=== PATIENT | male | born 1945 | race Two or more races ===

== ENCOUNTER 2017-12-23 08:44 | Inpatient (IN) | payer BC, MEDICAID ==
[~2017-12-23] VITALS: Ht 157.5 cm; Wt 86.2 kg
--- NOTE | 2017-12-23 08:50 | NUR ---
BBRA 83 FROM HOME C/O APHASIC AND UNRESPONSIVE~ 1 MIN PER AFTER BREAKFAST THIS AM ABOUT 45 MIN TEACHER LEARNING DISABLED. PATIENT HAS HX OF STROKE WITH LEFT SIDED PARALYSIS. UPON ARRIVAL PATIENT IS FULLY ALERT/ORIENTED X 3. NO OTHER NEURO DEFICITS NOTED, OTHER THAN LEFT SIDED PARALYSIS. BREATHING EVEN AND UNLABORED. NO SOB. VITALS STABLE. IV INTACT ON RAC, 18 G. SAFETY AND COMFORT MEASURES IN PLACE. AWAITING MD ORDERS.
--- NOTE | 2017-12-23 09:15 | NUR ---
VICE PRESIDENT NETWORK AT BEDSIDE FOR BLOOD DRAW.
--- NOTE | 2017-12-23 09:20 | NUR ---
PATIENT TAKEN TO CT VIA STRETCHER.
[2017-12-23 09:31] LABS: BASOPHILS # (AUTO) 0.2 /CMM (0.0-0.2); BASOPHILS % (AUTO) 0.8 % (0.0-2.0); EOSINOPHILS # (AUTO) 0.1 /CMM (0.0-0.7); EOSINOPHILS % (AUTO) 0.7 % (0.0-6.0); HEMATOCRIT 40 % (39-51); HEMOGLOBIN 13.6 g/dL (13.5-17.5); LYMPHOCYTES # (AUTO) 4.2 /CMM (0.8-4.8); LYMPHOCYTES % (AUTO) 21.7 % (20.0-44.0); MEAN CORPUSCULAR HEMOGLOBIN 28 PG (26.0-33.0); MEAN CORPUSCULAR HGB CONC 34 g/dl (31.0-36.0); MEAN CORPUSCULAR VOLUME 81 fL (80-96); MONOCYTES # (AUTO) 1.6 /CMM (0.1-1.30); MONOCYTES % (AUTO) 8.1 % (2.0-12.0); NEUTROPHILS # (AUTO) 13.5 /CMM (1.8-8.9); NEUTROPHILS % (AUTO) 68.7 % (43.0-81.0); PLATELET COUNT (AUTO) 235 /CMM (150-450); RDW COEFFICIENT OF VARIATION 13.8 (11.5-15.0); WHITE BLOOD COUNT (AUTO) 19.6 K/uL (4.3-11.0)
--- NOTE | 2017-12-23 09:34 | NUR ---
PATIENT RETURNED FROM CT IN STABLE CONDITION.
[2017-12-23 09:35] LABS: CALCIUM, SERUM 9.1 mg/dL (8.5-10.1); CARBON DIOXIDE 29 mmol/L (21-32); CHLORIDE 103 mmol/L (98-107); GLUCOSE 123 mg/dL (74-106); POTASSIUM 3.6 mmol/L (3.5-5.1); SODIUM SERUM 138 mmol/L (136-145); UREA NITROGEN, BLOOD 9 mg/dL (7-18)
--- NOTE | 2017-12-23 09:37 | NUR ---
MD INFORMED PATIENT UNABLE TO URINATE AT THIS TIME, MD STATED NO NEED TO CATH PATIENT AT THIS TIME. WILL CONTINUE TO MONITOR.
[2017-12-23 09:38] LABS: INR 0.98 (0.85-1.15)
--- NOTE | 2017-12-23 09:40 | NUR ---
AUTO WASHER AT BEDSIDE.
[2017-12-23 09:41] LABS: ALANINE AMINOTRANSFERASE 25 U/L (12-78); ALKALINE PHOSPHATASE 99 U/L (46-116); ASPARTATE AMINOTRANSFERASE 22 U/L (15-37); BILIRUBIN,DIRECT 0.2 mg/dL (0.0-0.2); BILIRUBIN,TOTAL 0.7 mg/dL (0.2-1.0)
[2017-12-23 09:43] LABS: TROPONIN I < 0.017 ng/mL (0.00-0.056)
[2017-12-23] MEDS ORDERED: LORAZEPAM INJ 2 MG/ML VIAL ONE ×2 (10:17→10:21)
--- NOTE | 2017-12-23 10:20 | NUR ---
PATIENT HAVING ACTIVE SEIZURE. MD INFORMED, MEDICATED PATIENT PER MD ORDERS. NO INJURIES SUSTAINED. VITALS REMAIN STABLE. WILL CONTINUE TO MONITOR.
--- NOTE | 2017-12-23 10:25 | NUR ---
PATIENT STILL SEIZING, 2ND DOSE OF ATIVAN GIVEN PER MD ORDERS. WILL MONITOR.
[2017-12-23] MEDS ORDERED: LORAZEPAM INJ 2 MG/ML VIAL IV ONE ×3 (10:30→14:30)
[2017-12-23] MEDS ORDERED: LEVETIRACETAM (500MG) 1,000 MG in IV NS 0.9% 100 ML IV SCH (10:30)
--- NOTE | 2017-12-23 10:45 | NUR ---
PATIENT SLEEPING AT THIS TIME, NO ACTIVITY OF SEIZURES. WILL CONTINUE TO MONITOR.
[2017-12-23] MEDS ORDERED: CLIN300C11 PO (10:56)
[2017-12-23] MEDS ORDERED: METF500T4 PO (10:56)
[2017-12-23] MEDS ORDERED: ATOR40TA PO (11:00)
[2017-12-23] MEDS ORDERED: SENN-167 PO (11:00)
[2017-12-23] MEDS ORDERED: LORA0.5T PO (11:00)
[2017-12-23] MEDS ORDERED: METO25TA6 PO (11:00)
[2017-12-23] MEDS ORDERED: APIX5TAB PO (11:00)
--- NOTE | 2017-12-23 11:17 | NUR ---
REPORT GIVEN TO OSWALD POMPA FOR PIPE UPON ADMISSION.
--- NOTE | 2017-12-23 11:40 | NUR ---
PATIENT TRANSPORTED TO [facility] VIA ACLS PROTOCOL. RNOSWALD TO PROVIDE PIPE.
--- NOTE | 2017-12-23 11:55 | NUR ---
CALLED , TRANSFERRED CALL TO
[2017-12-23 12:00] VITALS: BP 139/81
--- NOTE | 2017-12-23 12:00 | NUR ---
LEAD PAINTER AM NOTES RECIEVED PT FROM ER WITH DX OF SEIZURE.PT ALERT AND VERBALLY RESPONSIVE BUT WITH CONFUSION.PT HAD SEIZURE EPISODES IN ER AT 0830AM AND 1030AM.ATIVAN 1 MG IV GIVEN X2.KEPPRA 500 MG IV X1 GIVEN IN ER.RESPIRATIONS NON LABORED IN ROOM AIR.DENIES ANY PAIN OR DISTRESS.BLOOD SUGAR CHECKED WITH 121 RESULT.WITH LT SIDED WEAKNESS DUE TO PREVIOUS STROKE HX IN APRIL 2017.CLARIFIED ORDERS WITH DR KEENE AND WITH SATNAM OROSCO.PT'S DAUGHTER IN LAW AT BEDSIDE.CALL LIGHT PLACED WITHIN REACH.
[2017-12-23] MEDS ORDERED: INSULIN REGULAR, HUMAN 100 UNIT/ML 3 ML VIAL SQ PRN (14:00)
[2017-12-23] MEDS ORDERED: DEXTROSE 50%-WATER 50 ML DISP.SYRIN IV PRN (14:00)
[2017-12-23] MEDS ORDERED: *INSULIN REGULAR(HUMULIN R)HUM 100 UNIT/ML VIAL SQ PRN (14:00)
[2017-12-23] MEDS: BLOOD SUGAR DIAGNOSTIC 1 EACH STRIP VI SCH ×3 (14:33→21:47)
[2017-12-23] MEDS ORDERED: LORAZEPAM 0.5 MG TABLET PO PRN (15:30)
--- NOTE | 2017-12-23 15:30 | NUR ---
PT WENT TO MRI FOR MRI OF THE BRAIN WITH CONTRAST
[2017-12-23 16:00] VITALS: BP 151/75
[2017-12-23] MEDS ORDERED: GADOVERSETAMIDE 2.5 MMOL/5 ML VIAL IJ ONE (16:56)
[2017-12-23] MEDS ORDERED: GADOVERSETAMIDE 5 MMOL/10 ML VIAL IJ ONE (16:56)
--- NOTE | 2017-12-23 17:00 | NUR ---
PT CAME BACK FROM MRI AND EEG DONE WELL
[2017-12-23] MEDS: FAMOTIDINE/PF INJ 20 MG/2 ML VIAL IV SCH ×2 (18:37→21:47)
[2017-12-23] MEDS: ELIQUIS 5 MG PO SCH (18:37)
[2017-12-23] MEDS: METFORMIN 500 MG TABLET PO SCH (18:38)
[2017-12-23] MEDS: METOPROLOL TARTRATE 25 MG TABLET PO SCH (18:38)
[2017-12-23] MEDS: CLINDAMYCIN HCL 150 MG CAPSULE PO SCH (18:38)
--- NOTE | 2017-12-23 19:45 | NUR ---
ARNOLD RN INITIAL NOTE PT RECEIVED IN BED VERY SLEEPY WITH DAUGHTER IN LAW AT BEDSIDE. A/O X2 WITH NOTED CONFUSION BUT ABLE TO VERBALIZE SOME NEEDS. ON ROOM AIR AND SATURATING 97%. BREATHING REGULAR AND UNLABORED. NOTED WITH A SLIGHT COUGH BUT DAUGHTER IN LAW STATES HE'S ALWAYS HAD A COUGH DUE TO ALL THE YEARS OF SMOKING. HOB ELEVATED. TELE- SINUS RHYTHM 75 WITH PVC. IV RAC #20 CLEAN, DRY AND FLUSHING WELL. CALL LIGHT WITHIN REACH. WILL CONTINUE TO MONITOR.
[2017-12-23 20:00] VITALS: BP 149/60
[2017-12-23] MEDS: SENNOSIDES 8.6 MG TABLET PO SCH (21:47)
[2017-12-23] MEDS: ATORVASTATIN 40 MG TABLET PO SCH (21:47)
[2017-12-23] MEDS: LEVETIRACETAM (250 MG) 250 MG TABLET PO SCH (21:47)
[2017-12-24] VITALS: BP 133/64
[2017-12-24 04:00] VITALS: BP 136/65
[2017-12-24 07:16] LABS: BASOPHILS % (AUTO) 0.3 % (0.0-2.0); EOSINOPHILS # (AUTO) 0.2 /CMM (0.0-0.7); HEMATOCRIT 36 % (39-51); HEMOGLOBIN 12.1 g/dL (13.5-17.5); LYMPHOCYTES # (AUTO) 2.7 /CMM (0.8-4.8); LYMPHOCYTES % (AUTO) 25.5 % (20.0-44.0); MEAN CORPUSCULAR HEMOGLOBIN 28 PG (26.0-33.0); MEAN CORPUSCULAR HGB CONC 34 g/dl (31.0-36.0); MEAN CORPUSCULAR VOLUME 83 fL (80-96); MONOCYTES # (AUTO) 0.8 /CMM (0.1-1.30); MONOCYTES % (AUTO) 7.4 % (2.0-12.0); NEUTROPHILS # (AUTO) 6.9 /CMM (1.8-8.9); NEUTROPHILS % (AUTO) 64.8 % (43.0-81.0); PLATELET COUNT (AUTO) 216 /CMM (150-450); RDW COEFFICIENT OF VARIATION 14.7 (11.5-15.0); RED BLOOD CELL COUNT(AUTO) 4.35 MIL/uL (4.5-6.0); WHITE BLOOD COUNT (AUTO) 10.7 K/uL (4.3-11.0)
--- NOTE | 2017-12-24 07:29 | NUR ---
ARNOLD RN CLOSING NOTE PT REMAINED STABLE DURING SHIFT. DAUGHTER IN LAW AT BEDSIDE. ALL NEEDS ATTENDED TO PROMPTLY. KEPT CLEAN AND DRY. REPOSITIONED Q2H. CALL LIGHT WITHIN REACH. WILL ENDORSE TO NEXT SHIFT FOR CONTINUITY OF CARE.
--- NOTE | 2017-12-24 07:31 | NUR ---
ARNOLD RN NOTE PATIENT IN BED ,AWAKE ALERT , CAREGIVER AT BEDSIDE ALL NEEDS ATTENDED, ON 2L NC NO SOB NOTED .ON TELE MONITOR SR WIT PAC , RT AC HL INTACT .ON SEIZURE PRECAUTION, CALL LIGHT WITHIN REACH , BED IN LOWEST AND LOCKED POSITION , PLAN OF CARE DISUSED WITH PATIENT WILL CONT TO MONITOR CLOSELY
[2017-12-24 07:38] LABS: ALANINE AMINOTRANSFERASE 23 U/L (12-78); ALBUMIN 2.6 g/dL (3.4-5.0); ALKALINE PHOSPHATASE 72 U/L (46-116); ASPARTATE AMINOTRANSFERASE 17 U/L (15-37); BILIRUBIN,DIRECT 0.1 mg/dL (0.0-0.2); BILIRUBIN,TOTAL 0.6 mg/dL (0.2-1.0); CALCIUM, SERUM 9.2 mg/dL (8.5-10.1); CARBON DIOXIDE 27 mmol/L (21-32); CHLORIDE 104 mmol/L (98-107); CREATININE 0.9 mg/dL (0.6-1.3); GLUCOSE 103 mg/dL (74-106); POTASSIUM 3.5 mmol/L (3.5-5.1); SODIUM SERUM 140 mmol/L (136-145); UREA NITROGEN, BLOOD 9 mg/dL (7-18)
[2017-12-24 07:40] LABS: CHOLESTEROL 121 mg/dL (<200); HDL CHOLESTEROL 53 mg/dL (40-60); LDL 58 mg/dL (0-99); TRIGLYCERIDES 95 mg/dL (30-150); TROPONIN I < 0.017 ng/mL (0.00-0.056)
[2017-12-24 08:00] VITALS: BP 145/77
[2017-12-24] MEDS: METFORMIN 500 MG TABLET PO SCH (08:15)
[2017-12-24] MEDS: LEVETIRACETAM (250 MG) 250 MG TABLET PO SCH ×2 (08:15→21:42)
[2017-12-24] MEDS: METOPROLOL TARTRATE 25 MG TABLET PO SCH ×2 (08:15→16:10)
[2017-12-24] MEDS: ELIQUIS 5 MG PO SCH (08:15)
[2017-12-24] MEDS: FAMOTIDINE/PF INJ 20 MG/2 ML VIAL IV SCH ×2 (08:16→21:42)
[2017-12-24] MEDS: CLINDAMYCIN HCL 150 MG CAPSULE PO SCH ×3 (08:16→16:10)
[2017-12-24] MEDS: BLOOD SUGAR DIAGNOSTIC 1 EACH STRIP VI SCH ×4 (08:20→21:58)
--- NOTE | 2017-12-24 09:16 | NUR ---
ARNOLD RN NOTE SEEN BY DR KEENE, PER DR TYLER CALLED DR UMANZOR NEUROSURGEON FOR CONSULT MASS IN BRAIN, LEFT A MESSAGE .WILL F\]U
--- NOTE | 2017-12-24 09:24 | NUR ---
MEDICAL BILLING AND CODING INSTRUCTOR NOTE DR UMANZOR CALLED BACK ,AWARE OF PATIENT DX AND MRI RESULT STATED THAT WILL SEE PATIENT
[2017-12-24] MEDS: LISINOPRIL (10MG) 10 MG TABLET PO SCH (09:31)
[2017-12-24 12:00] VITALS: BP 143/72
--- NOTE | 2017-12-24 12:32 | NUR ---
ARNOLD RN NOTE UA COLLECTED ORDERED ,KEEP CLEAN DRY , NOT IN ACUTE DISTRESS
--- NOTE | 2017-12-24 12:40 | NUR ---
ARNOLD RN NOTE BLOOD SUGAR 110 MG\DL ,NO COVERAGE WITH INSULIN CAREGIVER AT BEDSIDE. HAVING DINER , WILL CONT TO MONITOR CLOSELY
--- NOTE | 2017-12-24 14:56 | NUR ---
ARNOLD RN NOTE STOOL FOR C DIF AND LEUCOCYTOSIS COLLECTED ORDERED , KEEP CLEAN DRY
[2017-12-24 15:00] LABS: APPEARANCE,URINE SL CLOUDY (CLEAR); BILIRUBIN,URINE NEGATIVE (NEGATIVE); BLOOD, URINE 1+ Ery/uL (NEGATIVE); COLOR,URINE YELLOW (YELLOW); KETONES,URINE NEGATIVE (NEGATIVE); LEUKOCYTE ESTERASE ,URINE NEGATIVE (NEGATIVE); NITRITE, URINE NEGATIVE (NEGATIVE); PH,URINE 6.5 (5.0-8.0); PROTEIN,URINE NEGATIVE (NEGATIVE); UGLUCOSE NEGATIVE (NEGATIVE); UROBILINOGEN,URINE 0.2 EU/dL (0.2)
[2017-12-24] MEDS: NEOMY SULF/BACITRAC ZN/POLY 15 GM TUBE TP SCH (15:06)
[2017-12-24 15:13] LABS: BACTERIA,URINE None seen /HPF (None Seen); SQUAMOUS EPITHELIAL CELL,UR Rare /HPF (None Seen); WBC,URINE 0-2 /HPF (0-3)
[2017-12-24 16:00] VITALS: BP 142/59
[2017-12-24] MEDS: APIXABAN 5 MG TABLET PO SCH (16:10)
[2017-12-24] MEDS ORDERED: INSULIN REGULAR, HUMAN 100 UNIT/ML 10 ML VIAL ONE (16:43)
[2017-12-24] MEDS ORDERED: ONDANSETRON HCL/PF 4 MG/2 ML VIAL ONE (16:43)
--- NOTE | 2017-12-24 18:10 | NUR ---
ARNOLD RN NOTE FEELS ANXIOUS AND RESTLESS ATIVAN O.5 MG PO GIVEN WILL F\U
--- NOTE | 2017-12-24 18:52 | NUR ---
ARNOLD RN NOTE ALL NEEDS ATTENDED RESTING COMFORTABLY , NOT IN ACUTE DISTRESS
--- NOTE | 2017-12-24 19:30 | NUR ---
ARNOLD/RN NOTES: PT RECEIVED IN BED SLEEPING W/ RESPIRATION EVEN AND UNLABORED. W/ O2 @2 LPM VIA N/C SAT. 96%. A/O X2 WITH PERIODS OF CONFUSION BUT ABLE TO VERBALIZE SOME NEEDS. HOB ELEVATED. ON TELE MONITOR SINUS RHYTHM 72 WITH PVC. IV RAC #20 SL PATENT AND INTACT W/ NO S/S OF INFECTION/INFILTRATION NOTED. CALL LIGHT WITHIN REACH. WILL CONTINUE TO MONITOR.
[2017-12-24 20:00] VITALS: BP 106/55
[2017-12-24] MEDS: ATORVASTATIN 40 MG TABLET PO SCH (21:41)
[2017-12-24] MEDS: SENNOSIDES 8.6 MG TABLET PO SCH (21:42)
[2017-12-25] VITALS: BP 144/62
--- NOTE | 2017-12-25 00:49 | NUR ---
ARNOLD/RN NOTES: ON SEIZURE PRECAUTIONS. SIDE RAILS PADDED. WILL CONTINUE TO MONITOR.
[2017-12-25 04:00] VITALS: BP 105/64
--- NOTE | 2017-12-25 07:33 | NUR ---
ARNOLD/RN NOTES: SON AT BEDSIDE. NO ACUTE DISTRESS NOTED DURING THIS SHIFT. REPORT GIVEN TO AM SHIFT NURSE TO PIPE.
[2017-12-25 08:00] VITALS: BP 120/68
--- NOTE | 2017-12-25 08:00 | NUR ---
RN INITIAL NOTE PATIENT IN BED AWAKE ALERT AND ORIENTED X3. HE IS ABLE TO MAKE THINGS KNOWN IN HIS [place] LANGUAGE. FAMILY CURRENTLY AT BEDSIDE. PATIENT IS BREATHING EVEN NONLABORED ON 2LPM VIA NC SATURATION OF 100%. ON CARDIAC MONITORING OF SINUS RHYTHM OF 60. KEPT CLEAN DRY AND COMFORTABLE. RIGHT AC IV SITE INTACT AND PATENT. NO EPISODES OF HYPER/HYPOGLEMCIA NOTED. ACCU CHECK DONE THIS MORNING RESULT OF 100. ALL SAFETY MEASURES PROVIDED AND WILL CONTINUE TO MONITOR AND NOTIFY ANY CHANGES TO MD.
[2017-12-25] MEDS: BLOOD SUGAR DIAGNOSTIC 1 EACH STRIP VI SCH ×2 (08:06→12:32)
[2017-12-25] MEDS: APIXABAN 5 MG TABLET PO SCH (08:06)
[2017-12-25] MEDS: FAMOTIDINE/PF INJ 20 MG/2 ML VIAL IV SCH (08:06)
[2017-12-25] MEDS: LISINOPRIL (10MG) 10 MG TABLET PO SCH (08:07)
[2017-12-25] MEDS: CLINDAMYCIN HCL 150 MG CAPSULE PO SCH ×2 (08:07→12:22)
[2017-12-25] MEDS: LEVETIRACETAM (250 MG) 250 MG TABLET PO SCH (08:07)
[2017-12-25 08:08] VITALS: BP 120/68
[2017-12-25] MEDS: METOPROLOL TARTRATE 25 MG TABLET PO SCH (08:08)
[2017-12-25] MEDS: NEOMY SULF/BACITRAC ZN/POLY 15 GM TUBE TP SCH (08:22)
--- NOTE | 2017-12-25 08:27 | NUR ---
WOUND CARE CONSULT WOUND CARE RECEIVED CONSULT FOR BACK BOIL AND WOUND ON BACK. WOUND CARE WILL DEFER TO SURGICAL TEAM WHO ARE CURRENTLY FOLLOWING PATIENT. THERE ARE TREATMENT ORDERS IN PLACE AND ALL PRESSURE ULCER PREVENTION MEASURES NOTED TO BE IN PLACE. PATIENT WITH SHAKEEL AT 13.
--- NOTE | 2017-12-25 08:30 | NUR ---
TD/RN ROUNDS - DR. YOUSSEF PT SEEN & EXAMINED BY DR. YOUSSEF. NO NEW ORDERS RECEIVED AT THIS TIME. MONITORING CONTINUED.
--- NOTE | 2017-12-25 08:50 | NUR ---
TD/RN ROUNDS - DR. KEENE PT SEEN & EXAMINED BY DR. KEENE, WITH ORDER RECEIVED TO DISCHARGE PT HOME. NOTED AND CARRIED.
[2017-12-25] MEDS ORDERED: LEVE250T2 PO (08:52)
[2017-12-25] MEDS ORDERED: LISI10TA59 PO (08:52)
[2017-12-25] MEDS ORDERED: NEOM15OI3 TP (08:52)
--- NOTE | 2017-12-25 13:29 | NUR ---
TD/RANGE ECOLOGIST - HOME DISCHARGE INSTRUCTIONS GIVEN TO PT'S [id number] VERBALIZED UNDERSTANDING. DISCHARGE DOCUMENTS, INCLUDING PRESCRIPTION GIVEN. PERSONAL BELONGINGS RETURNED, INVENTORY LOG SIGNED OFF. ID BAND REMOVED, IV SITE REMOVED, PRESSURE DRESSING APPLIED, NO S/S OF INFECTION. PT LEFT TD UNIT IN STABLE CONDITION VIA WHEELCHAIR ACCOMPANIED BY MYSELF AND ANOTHER RN, ASSISTED PT TO A PRIVATE CAR.
== END 2017-12-25 13:32 | disposition home or self-care (01) | DRG 101 ==
LOC: ER 08:45 → TELE1 13:08 → TELE-TD 14:28
PROVIDERS: ADMIT Internal Medicine; ATTEND Internal Medicine
DX: G40.909 Epilepsy, unspecified, not intractable, without status epilepticus (principal); I69.354 Hemiplegia and hemiparesis following cerebral infarction affecting left non-dominant side; E11.9 Type 2 diabetes mellitus without complications; E78.5 Hyperlipidemia, unspecified; D72.829 Elevated white blood cell count, unspecified; E23.7 Disorder of pituitary gland, unspecified; I25.10 Atherosclerotic heart disease of native coronary artery without angina pectoris; Z87.891 Personal history of nicotine dependence; Z79.84 Long term (current) use of oral hypoglycemic drugs; Z79.899 Other long term (current) drug therapy; I25.2 Old myocardial infarction; Z83.3 Family history of diabetes mellitus; Z79.01 Long term (current) use of anticoagulants; Z86.711 Personal history of pulmonary embolism; Z66 Do not resuscitate; L72.3 Sebaceous cyst
CPT/HCPCS: 36415; 70450-TC; 70553-TC; 71045-TC; 80048-TC; 80061-TC; 80076-TC; 81000-TC; 82962-TC; 84443-TC; 84484-TC; 85025-TC; 85730-TC; 87081-TC; 89055; 95819-TC; A4606; A6402; A9579; J1815; J1953; J2060; J2405; J3490; J7030; Z7610